=== PATIENT | male | born 1995 | race Caucasian/White ===

== ENCOUNTER 2022-08-28 17:00 | Emergency (ER) | payer SELFPAY ==
--- NOTE | 2022-08-28 17:04 | EXP.UTC ---
Discharge Plan Disposition Patient Disposition: Home, Self-Care Condition: Good Prescriptions Prescriptions: New cephalexin 500 mg capsule 500 mg PO QID Qty: 40 0RF Referrals Follow up/Referrals: Huber Vidales DO [Staff Physician] - See instructions Provider,Referral, [Primary Care Provider] - See instructions Activity Restrictions/Add. Instructions Additional Instructions/Restrictions: Keep the wound clean and dry. For the next couple of days, wear the finger splint. Keep it elevated as much time as possible to control the swelling. If it does swell under the splint then please remove the splint. Keep a dressing on it if you are going to be getting it dirty. Watch wound the for signs of infection, such as redness, swelling, drainage, fever. etc. Take tylenol or ibuprofen for pain. Follow up with your regular doctor. You could return here or follow up with your regular doctor for any issues or problems that you have Return in 10 days to have the sutures removed. GO TO THE ER FOR ANY WORSENING SYMPTOMS OR CONCERNS. 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 He received a laceration on the palmar surface of the finger. He denies any other injury. Related Data Previous Rx's Medication Instructions Recorded cephalexin 500 mg capsule 500 mg PO QID #40 caps 08/28/22 Allergies Allergy/AdvReac Type Severity Reaction Status Date / Time No Known Allergies Allergy Verified 08/28/22 17:21 [facility] Disclaimer: The information contained in this section may have been updated after the patient was seen, as this information can be updated by other users. Social History Smoking Status: Never smoker alcohol intake: former current occupational status: employed Travel in the last 8 weeks: None ROS Obtained: Yes All systems reviewed & no additional complaints except as documented Constitutional Constitutional: Denies chills and Denies fever(s) Eyes Eyes: Denies eye discharge ENT Ears, Nose, Mouth, and Throat: Denies dizziness, Denies otalgia and Denies sore throat Cardiovascular Cardiovascular: Denies chest pain Respiratory Respiratory: Denies shortness of breath, Denies chest congestion, Denies cough, Denies stridor and Denies wheezing Gastrointestinal Gastrointestingal: Denies nausea or vomiting Musculoskeletal Musculoskeletal: Reports system reviewed and no additional complaints, except as documented and Denies arthralgias Integumentary/Breasts Skin/Breast: Reports as per HPI Neurologic Neurologic: Denies dizziness and Denies paresthesias Allergic/Immunologic Allergic/Immunologic: Denies wheezing Physical Exam General General appearance: alert and in no apparent distress Head Head exam: atraumatic, normocephalic and normal inspection Eye Eye exam: Present normal appearance, PERRL and EOMI ENT ENT exam: Present normal exam, normal oropharynx, mucous membranes moist, TM's normal bilaterally and normal external ear exam Neck Neck exam: Present normal inspection, full ROM and trachea midline; Absent meningismus or lymphadenopathy Chest Chest inspection: Present normal inspection and symmetric chest wall rise; Absent tenderness Respiratory Respiratory exam: Present normal lung sounds bilaterally; Absent respiratory distress Cardiovascular Cardiovascular exam: Present regular rate and normal rhythm; Absent JVD Abdominal Exam Abdominal exam: Present soft and normal bowel sounds; Absent diste
[2022-08-28 17:18] VITALS: BP 115/84; PULSE 72; RESP 16; TEMP 36.7; O2SAT 98; BMI 27.9
--- NOTE | 2022-08-28 17:18 | XR_ITS ---
PROCEDURE INFORMATION: Exam: XR Right Hand Exam date and time: 08/28/2022 5:19 PM Age: 26 years old Clinical indication: Injury or trauma; Other: Smashed 5th pinky finger with a wagon. Work related; Crushing; Little finger; Patient HX: Smashed right fifth pinky finger with a wagon. TECHNIQUE: Imaging protocol: Radiologic exam of the Right hand. Views: 3 or more views. COMPARISON: No relevant prior studies available. FINDINGS: Bones/joints: No visible fracture or dislocation. Soft tissues: Diffuse soft tissue swelling about the distal volar soft tissues of the 5th finger. IMPRESSION: 1. No visible fracture or dislocation. 2. Diffuse soft tissue swelling about the distal volar soft tissues of the 5th finger.
[2022-08-28 19:50] VITALS: BP 115/84; PULSE 72; RESP 16; TEMP 36.7
== END 2022-08-28 19:51 | disposition home or self-care (01) ==
PROVIDERS: Emergency Provider Nurse Practitioner Family
DX: S61.210A Laceration without foreign body of right index finger without damage to nail, initial encounter (principal); S67.10XA Crushing injury of unspecified finger(s), initial encounter; Z23 Encounter for immunization
CPT/HCPCS: 12001; 73130; 90471; 90714; 99213; G0463

== ENCOUNTER → 2023-05-29 08:00 | Outpatient (CLI) | payer SELFPAY | LOC: LAB.DROPOF 06-25 08:13 | PROVIDERS: PCP Student in an Organized Health Care Education/Training Program; Visit Provider Student in an Organized Health Care Education/Training Program | DX: J02.9 Acute pharyngitis, unspecified (principal); U07.1 COVID-19; B95.7 Other staphylococcus as the cause of diseases classified elsewhere | CPT/HCPCS: 87070; 87077; 87186; 87635 ==